=== PATIENT | female | born 1975 | race Caucasian/White ===

== ENCOUNTER 2016-07-17 10:05 | Outpatient (CLI) ==
[2013-01-21 15:00] VITALS: BMI 18.1
--- NOTE | 2016-07-17 11:01 | MAMMO ---
EXAM: Bilateral digital diagnostic mammogram History: Abnormal mammogram. Comparision: 12/24/2015 Findings: MLO and CC views of bilateral breasts demonstrate heterogeneously dense breast parenchyma which can obscure small lesions. Probably benign bilateral breast nodular densities appear unchanged . There are no suspicious microcalcifications. No architectural distortion. Impression: Stable probably benign bilateral breast nodular densities. Recommend follow-up bilateral mammogram in 6 months to document stability. BIRADS 3, probably benign
== END 2016-07-17 10:06 | disposition home or self-care (01) ==
LOC: RAD 10:05
PROVIDERS: ATTEND Family Medicine
DX: R92.8 Other abnormal and inconclusive findings on diagnostic imaging of breast (principal)

== ENCOUNTER 2017-10-30 09:18 | Outpatient (CLI) ==
[2013-01-21 15:00] VITALS: BMI 18.1
--- NOTE | 2017-10-31 10:52 | MAMMO ---
EXAM: Digital screening mammogram HISTORY: Screening COMPARISON: 07/17/2016 FINDINGS: Digital MLO and CC views of the right and left breast were performed. The breast tissue i s heterogeneously dense, which could obscure small masses. There is a mass in the right breast upper outer quadrant mid to posterior depth. There is a mass in the left breast upper outer quadrant mid to posterior depth. IMPRESSION: Bilateral breast masses. Recommend correlation with ultrasound. BIRADS category 0, incompolete
== END 2017-10-30 09:19 | disposition home or self-care (01) ==
LOC: RAD 09:18
PROVIDERS: ATTEND Obstetrics & Gynecology
DX: Z12.31 Encounter for screening mammogram for malignant neoplasm of breast (principal)
CPT/HCPCS: 77067

== ENCOUNTER 2017-11-07 09:26 | Outpatient (CLI) ==
[2013-01-21 15:00] VITALS: BMI 18.1
--- NOTE | 2017-11-07 10:44 | US ---
EXAM: Bilateral breast ultrasound. History: Bilateral breast masses. Comparison: Bilateral mammogram 10/30/2017 Technique: Multiple sonographic images through the bilateral breast were obtained. Color duplex Dop pler was used to interrogate vascular flow. Findings: Multiple benign bilateral breast cysts and bilateral breast cyst clusters are identified w ith the largest in the right breast measuring 2.2 cm and the largest in the left breast measuring 1.5 cm. There are no suspicious masses or abnormal fluid collections. Impression: Benign bilateral breast cysts. Recommend followup with routine screening mammography in 1 year. BIRADS 2
== END 2017-11-07 09:27 | disposition home or self-care (01) ==
LOC: RAD 09:26
PROVIDERS: ATTEND Obstetrics & Gynecology
DX: R92.8 Other abnormal and inconclusive findings on diagnostic imaging of breast (principal)